=== PATIENT | female | born 1970 | race Caucasian/White ===

== ENCOUNTER 2019-04-08 00:13 | Emergency (ER) | payer OTHER ==
[~2019-04-08] VITALS: Ht 170.2 cm; Wt 79.4 kg
[2019-04-08 00:20] VITALS: BP 124/80
--- NOTE | 2019-04-08 00:29 | NUR ---
PT AMBULATED BACK TO LOBBYDEV
--- NOTE | 2019-04-08 00:44 | NUR ---
PT TAKEN TO BED 2
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
--- NOTE | 2019-04-08 01:08 | NUR ---
SEEN AND EXAMINED BY CHANDRAKANT WITH ORDERS AND CARRIED OUT.
[2019-04-08] MEDS ORDERED: KETOROLAC 30 MG/ML VIAL IM ONE (01:10)
[2019-04-08] MEDS ORDERED: ACETAMINOPHEN EXTRA STRENGTH 500 MG TAB PO ONE (01:20)
--- NOTE | 2019-04-08 01:22 | NUR ---
PATIENT REFUSED IM MEDICATION , NOTED BY ERMD, TYLENOL 1 GRAM PO WAS GIVEN TOLERATED WELL.
--- NOTE | 2019-04-08 01:46 | NUR ---
PT TO CT VIA WHEELCHAIR BY TECH.
--- NOTE | 2019-04-08 03:52 | NUR ---
SUGAR TONG SPLINT PLACED ON PT L ARM, WRAPPED IN HERACLIO WRAP. +CSM PT L ARM PLACED IN SLING SIZED MEDIUM, FITTED TO PT HEIGHT
[2019-04-08 04:18] VITALS: BP 124/80
--- NOTE | 2019-04-08 04:18 | NUR ---
Note felaone in EDM - 04/08/19 at 0419 by BRITTNI Patient discharged with v/s stable. Written and verbal after care instructions given and explained. Patient alert, oriented and verbalized understanding of instructions. Ambulatory with steady gait. All questions addressed prior to discharge. ID band removed. Patient advised to follow up with PMD. Rx of NORCO AND NAPROSYN WAS given. Patient educated on indication of medication including possible reaction and side effects. Opportunity to ask questions provided and answered.
== END 2019-04-08 04:18 | disposition home or self-care (01) ==
LOC: MED 00:13
DX: S42.402A Unspecified fracture of lower end of left humerus, initial encounter for closed fracture (principal); S09.90XA Unspecified injury of head, initial encounter; M54.2 Cervicalgia; F17.200 Nicotine dependence, unspecified, uncomplicated; V00.131A Fall from skateboard, initial encounter; Y93.51 Activity, roller skating (inline) and skateboarding; Y92.89 Other specified places as the place of occurrence of the external cause; Y99.8 Other external cause status
CPT/HCPCS: 29105; 70450; 72125; 73080; 99284; J1885